=== PATIENT | male | born 1940 | race Caucasian/White ===

== ENCOUNTER 2022-01-04 17:45 | Emergency (ER) | payer MEDICARE, OTHER ==
[2022-01-04] MEDS ORDERED: Sodium Chloride 0.9% 0 ML ONE (20:50)
[2022-01-04] MEDS ORDERED: Acetaminophen 325 MG Tab PO ONE (20:52)
== END 2022-01-05 00:01 | disposition home or self-care (01) ==
LOC: JD.ED 17:45
DX: J06.9 Acute upper respiratory infection, unspecified (principal); R74.01 Elevation of levels of liver transaminase levels; K76.89 Other specified diseases of liver; Z20.822 Contact with and (suspected) exposure to COVID-19; Z79.899 Other long term (current) drug therapy
CPT/HCPCS: 36415; 70450; 71045; 80053; 81001; 83605; 84484; 85025; 85610; 85730; 87040; 87077; 87154; 87186; 87502; 93005; 99285; A9270; U0002; 76705-26

== ENCOUNTER 2022-01-06 07:56 | Emergency (ER) | payer MEDICARE, OTHER ==
[2022-01-06] MEDS ORDERED: cefTRIAXone 2 GM in Sodium Chloride 0.9% 100 ML IV ONE (10:27)
== END 2022-01-06 12:17 | disposition home or self-care (01) ==
LOC: JD.ED 07:56
DX: R78.81 Bacteremia (principal); E78.00 Pure hypercholesterolemia, unspecified; I10 Essential (primary) hypertension
CPT/HCPCS: 36415; 81001; 83605; 85025; 96365; 99282; J0696

== ENCOUNTER 2022-12-24 11:37 | Emergency (ER) | payer MEDICARE, OTHER ==
[2022-12-24] MEDS ORDERED: Sodium Chloride 0.9% 1,000 ML IV STA (12:38)
[2022-12-24] MEDS ORDERED: Sodium Chloride 0.9% 10 ML Syringe FLUSH PRN (12:39)
[2022-12-24] MEDS ORDERED: Iopamidol 612 MG/ML 100 ML Bottle IVPUSH ONE (13:48)
[2022-12-24] MEDS ORDERED: Piperacillin/Tazobactam 4.5 GM in Sodium Chloride 0.9% 100 ML IV ONE (15:51)
== END 2022-12-24 19:20 ==
LOC: JD.ED 11:37
DX: K85.90 Acute pancreatitis without necrosis or infection, unspecified (principal); K80.80 Other cholelithiasis without obstruction; I71.43 Infrarenal abdominal aortic aneurysm, without rupture; I10 Essential (primary) hypertension; Z79.899 Other long term (current) drug therapy; Z87.891 Personal history of nicotine dependence
CPT/HCPCS: 36415; 74177; 76705; 83690; 87040; 87154; 96361; 96365; 99285; J2543; J3490; J7030; Q9967; 87077; 87186; 99284